=== PATIENT | male | born 1960 | race Caucasian/White ===

== ENCOUNTER → 2016-07-29 | Day surgery (SDC) | payer BC ==
[~2016-07-29] MED LIST: ALLEGRA ALLERG180 MG PO; FISH OIL 1,001000 M1 PO; GLUCOSAMINE 1,51 CA1 PO; GLUCOSAMINE CH1 EAC4 PO; MAGNESIUM250 M1 PO; MAGNESIUM400 MG PO; MOVE FREE ULTR1 EACH; MULTI-VITAMIN1 EAC1 PO; OSTEO BI-FLEX1 EAC2 PO; PRAVASTATIN SOD20 MG PO
--- NOTE | ~2016-07-29 | OR ---
Unit #: [id number] #: [id number] Patient: NOLA MALDONADO [id number] [address] [place], [place] [address] [id number] MR#: [id number] NAME: NOLA MALDONADO. ROOM: Date of Procedure: 07/29/2016 Admission Date: 07/29/2016 Surgeon: Imer Mock M.D. : 1960 Attending Physician: Og Mock Primary Care Physician: Ursula Winter M.D. [facility] OPERATIVE NOTE PROCEDURE PERFORMED Lumbar epidural steroid injection under x-ray guided needle placement. PREOPERATIVE DIAGNOSES 1. Acute lumbar radiculitis. 2. Spinal stenosis, lumbosacral spine. 3. Herniated disk, L3-L4. 4. Degenerative disk disease, lumbosacral spine. 5. Degenerative joint disease, lumbosacral spine. INDICATIONS FOR PROCEDURE The patient presents today approximately 3 months post L4-L5 diskectomy and laminectomy. Prior to his operation he had both L3-L4 and L4-L5 radiculitis, which had been treated successfully with epidural steroid injections. His usual amount relief was 60% to 80% for 8 to 10 weeks. He presents today 3 months out from his L4-L5 surgery with recurrence of his symptoms, which are compatible with his L3-L4 disk as well as a potential recurrence of symptoms from L4-L5 though that is doubtful. After discussing risks and benefits of proceeding today with L3-L4 injection, the patient agreed that this would be the appropriate course of action. DESCRIPTION OF PROCEDURE He was then taken to the operating room, where he was prepped and draped in a sterile manner. Standard monitors were applied. He refused all forms of sedation and lumbar epidural space was accessed at the L3-L4 level using loss of resistance technique and x-ray guidance. Needle placement was confirmed with injection of 2 mL of Omnipaque. Approximately 80% of the dye flow was in the superior direction. Total x-ray time for this needle placement was 4 seconds. Following successful needle placement and confirmation at the L3-L4 level, the patient received an injectate containing 4 mL of normal saline and 80 mg of methylprednisolone. He tolerated this procedure well. He was discharged home with followup instructions, which include an offer to return to this clinic as early as 11/04 if we could be of further service to him. Dictated by... Donal Daley/clemente TD: 07/30/2016 06:59 Unit #: [id number] #: [id number] Patient: NOLA MALDONADO JOB #: [id number] CC: Belen Jesus M.D. [facility] OPERATIVE NOTE Page 1 of 1 X Og Mock MD X PROCEDURE OPERATIVE NOTE
== END | disposition home or self-care (01) ==
LOC: CCSC 07-15 11:30
DX: M51.17 Intervertebral disc disorders with radiculopathy, lumbosacral region (principal); M51.16 Intervertebral disc disorders with radiculopathy, lumbar region; M47.27 Other spondylosis with radiculopathy, lumbosacral region; M48.07 Spinal stenosis, lumbosacral region; Z79.899 Other long term (current) drug therapy; Z90.81 Acquired absence of spleen; Z98.890 Other specified postprocedural states
CPT/HCPCS: J1040; J2250